=== PATIENT | female | born 1975 | race Caucasian/White ===

== ENCOUNTER 2021-07-29 17:42 | Emergency (ER) | payer OTHER ==
[~2021-07-29] VITALS: Ht 170.2 cm; Wt 78.0 kg
[2021-07-29 17:43] VITALS: BP 138/98
--- NOTE | 2021-07-29 18:00 | NUR ---
Patient ambulated to bed 11 with steady/even gait.
--- NOTE | 2021-07-29 18:05 | NUR ---
45 y/o F BIB self from home c/o chest pain x 2 hours. Patient A&Ox4, ambulatory, states left-sided chest pain, 8/10, pressure-like, radiating to back. Pt reports experiencing low back pain and leg cramps 2 days ago. Patient denies lower extremity pain at this time, however, reports 8/10 "waistline" pain that is cramping in nature. Pt was seen in urgent care today where she was prescribed naproxen and advised for ER evaluation if symptoms worsen. Last naproxen taken 4 hours ago. Oral temperature 100.2. Cap refill <2 seconds. Skin pink/dry/hot. Bed locked in lowest position, side rails x 1. Denies recent vaccinations or sick household members. pmh: anxiety medS: none nka
--- NOTE | 2021-07-29 18:28 | NUR ---
Dr. Adam is evaluating patient at bedside.
[2021-07-29] MEDS ORDERED: NACL 0.9% 1,000 ML IV ONE (18:30)
[2021-07-29] MEDS ORDERED: KETOROLAC 30 MG/ML VIAL IVP ONE (18:35)
[2021-07-29 18:48] LABS: BILIRUBIN,URINE NEGATIVE (NEGATIVE); BLOOD, URINE 2+ (NEGATIVE); LEUKOCYTE ESTERASE ,URINE 2+ (NEGATIVE); NITRITE, URINE NEGATIVE (NEGATIVE); UGLUCOSE NEGATIVE (NEGATIVE)
[2021-07-29 18:52] LABS: APPEARANCE,URINE HAZY (CLEAR); COLOR,URINE STRAW (YELLOW)
[2021-07-29 19:05] LABS: RBC,URINE 0-5 /HPF (0-5)
--- NOTE | 2021-07-29 19:38 | NUR ---
Received report from off-going nurse. Care assumed. In room to assess patient. Pt in bed, tearful and anxious. Pt states she's continuing to have back pain, mid sternal CP, despite receiving med earlier, given by previous RN. Rechecked oral temp: 100.1. All other VS WNL. IV infusing without s/sx of complication. Pt states she noted her urine cloudy a few days ago, however, started clearning. Pt denies any urinary symptoms. Plan of care reviewed. Pt receptive to info.
[2021-07-29] MEDS ORDERED: ACETAMINOPHEN EXTRA STRENGTH 500 MG TAB PO ONE (19:45)
--- NOTE | 2021-07-29 19:45 | NUR ---
Patient requesting to recheck oral temp: 99.8. Updated pt w/ plan of care. Pt receptive to info. Administered tylenol 1g PO without event. Pt now transported off unit to [facility] via .
[2021-07-29] MEDS ORDERED: cefTRIAXone 1,000 MG VIAL ONE (20:09)
[2021-07-29] MEDS ORDERED: CEPH-588 PO (20:28)
--- NOTE | 2021-07-29 20:49 | NUR ---
IV ABX infusion completed without s/sx of complication. IV removed w/ cannula tip intact.
[2021-07-29 20:50] VITALS: BP 127/82
== END 2021-07-29 20:50 | disposition home or self-care (01) ==
LOC: MED 17:42
DX: N12 Tubulo-interstitial nephritis, not specified as acute or chronic (principal); B34.9 Viral infection, unspecified; Z20.822 Contact with and (suspected) exposure to COVID-19
CPT/HCPCS: 71046; 81001; 81025; 87086; 87635; 93005; 96361; 96365; 96375; 99285; C9803; J0696; J1885; J7030